=== PATIENT | female | born 2000 | race Caucasian/White ===

== ENCOUNTER 2024-10-21 19:39 | Inpatient (IN) | payer OTHER ==
[~2024-10-21] VITALS: Ht 162.6 cm; Wt 54.1 kg
[2024-10-21 19:51] VITALS: O2SAT 100
[2024-10-21 21:44] LABS: HEMATOCRIT. 46.2 % (36.0-48.0); HEMOGLOBIN. 15.6 g/dL (12.0-16.0); MEAN CORPUSCULAR HEMOGLOBIN 30.5 pg (28.0-32.0); MEAN CORPUSCULAR HGB CONC 33.8 g/dL (31.0-37.0); MEAN CORPUSCULAR VOLUME 90.2 fL (81.0-99.0); MEAN PLATELET VOLUME 7.3 fl (7.4-10.4); PLATELET 194 x1000/uL (130-400); RED BLOOD CELL COUNT 5.12 mill/uL (4.2-5.4); RED CELL DISTRIBUTION WIDTH 12.6 % (11.6-14.6); WHITE BLOOD COUNT 14.2 x1000/uL (4.5-11.0)
[2024-10-21 21:49] LABS: DIFFERENTIAL COMMENT 1
[2024-10-21 21:50] LABS: CHLORIDE 119 mEq/L (98-107); SODIUM 148 mEq/L (136-145)
[2024-10-21 21:51] LABS: CARBON DIOXIDE 17 mEq/L (21-32)
[2024-10-21 21:52] LABS: HCG SCREEN NEGATIVE
[2024-10-21 21:56] LABS: CREATININE 0.4 mg/dL (0.6-1.0); GLUCOSE 99 mg/dL (70-105); UREA NITROGEN BLOOD 11 mg/dL (9-23)
[2024-10-21 21:58] LABS: ALANINE AMINOTRANSFERASE 9 IU/L (10-49); ALBUMIN 2.6 g/dL (3.2-4.8); ASPARTATE AMINOTRANSFERASE 16 IU/L (<34); BILIRUBIN DIRECT 0.2 mg/dL (<=3.0); BILIRUBIN TOTAL 0.7 mg/dL (0.1-1.0); PROTEIN TOTAL 4.7 g/dL (6.0-8.3)
[2024-10-21 22:03] LABS: PLATELET ESTIMATE NORMAL
[2024-10-21 22:04] LABS: CALCIUM 5.9 mg/dL (8.7-10.4); LACTIC ACID 3.7 mmol/L (0.4-2.0); POTASSIUM 2.8 mEq/L (3.5-5.1)
[2024-10-21] MEDS ORDERED: KCL 20MEQ/100ML PREMIX 100 ML IV SCH (22:45)
[2024-10-21] MEDS: SODIUM CHLORIDE 0.9% 1,000 ML IV ONE (23:18)
[2024-10-21] MEDS: ONDANSETRON HCL 4MG/2ML INJ IV NR (23:20)
[2024-10-21] MEDS: MAGNESIUM 2 G PREMIX 50 ML IV NR (23:34)
[2024-10-22] MEDS: POTASSIUM CHLORIDE 40 MEQ in DEXT 5% WATER 230 ML IV NR (01:26)
[2024-10-22] MEDS ORDERED: IPRATROPIUM/ALBUTEROL 0.5-3(2.5)MG/3ML NEB HHN PRN (02:00)
[2024-10-22] MEDS ORDERED: ONDANSETRON HCL 4MG/2ML INJ IV PRN (02:00)
[2024-10-22] MEDS ORDERED: ACETAMINOPHEN 325MG TABLET PO PRN ×2 (02:00)
[2024-10-22] MEDS ORDERED: CLONIDINE 0.1MG TABLET PO PRN (02:00)
[2024-10-22] MEDS: POTASSIUM CHLORIDE 30 MEQ in DEXT 5%/0.9% NACL 985 ML IV SCH (03:30)
[2024-10-22] MEDS ORDERED: POTASSIUM CHLORIDE 30 MEQ in DEXT 5%/0.9% NACL 985 ML IV SCH (04:00)
[2024-10-22 06:07] LABS: PHOSPHORUS 3.2 mg/dL (2.5-4.9)
[2024-10-22 07:55] LABS: CLARITY URINE CLEAR (CLEAR); COLOR URINE YELLOW (YELLOW); GLUCOSE URINE NEGATIVE (NEGATIVE); KETONES URINE NEGATIVE (NEGATIVE); LEUKOCYTE ESTERASE URINE NEGATIVE (NEGATIVE); NITRITE URINE NEGATIVE (NEGATIVE); OCCULT BLOOD URINE NEGATIVE (NEGATIVE); PROTEIN URINE NEGATIVE (NEGATIVE); SPECIFIC GRAVITY URINE 1.027 (1.005-1.030); UROBILINOGEN URINE 0.2 E.U./dL (0.2-1.0)
[2024-10-22 09:09] LABS: CARBON DIOXIDE 26 mEq/L (21-32); CHLORIDE 106 mEq/L (98-107); POTASSIUM 3.9 mEq/L (3.5-5.1); SODIUM 141 mEq/L (136-145)
[2024-10-22 09:10] LABS: BASOPHILS % 0.3 % (0.0-2.0); CALCIUM 8.3 mg/dL (8.7-10.4); EOSINOPHILS % 0.1 % (0.0-5.0); HEMATOCRIT. 38.9 % (36.0-48.0); HEMOGLOBIN. 13.2 g/dL (12.0-16.0); LYMPHOCYTES % 8.1 % (20.0-50.0); MEAN CORPUSCULAR HEMOGLOBIN 30.6 pg (28.0-32.0); MEAN CORPUSCULAR HGB CONC 33.9 g/dL (31.0-37.0); MEAN CORPUSCULAR VOLUME 90.5 fL (81.0-99.0); MEAN PLATELET VOLUME 7.2 fl (7.4-10.4); MONOCYTES % 9.2 % (2.0-8.0); NEUTROPHILS % 82.3 % (40.0-76.0); PLATELET 168 x1000/uL (130-400); RED CELL DISTRIBUTION WIDTH 12.7 % (11.6-14.6); WHITE BLOOD COUNT 9.4 x1000/uL (4.5-11.0)
[2024-10-22 09:14] LABS: CREATININE 0.7 mg/dL (0.6-1.0); GLUCOSE 94 mg/dL (70-105)
[2024-10-22 09:15] LABS: UREA NITROGEN BLOOD 14 mg/dL (9-23)
[2024-10-22 09:17] LABS: PHOSPHORUS 2.3 mg/dL (2.5-4.9)
[2024-10-22] MEDS: CALCIUM CARBONATE/VITAMIN D3 500MG TABLET PO SCH (09:32)
[2024-10-22] MEDS: SODIUM PHOSPHATE 10 MMOL in DEXT 5% WATER 246.6667 ML IV NR (12:00)
[2024-10-22 15:47] VITALS: BP 100/67; PULSE 85; RESP 16; TEMP 36.7
[2024-10-22 16:00] VITALS: BP 100/67; PULSE 85; RESP 16; TEMP 36.7; O2SAT 98
== END 2024-10-22 20:31 | disposition home or self-care (01) | DRG 371 ==
LOC: ER 19:39 → 8EST 10-22 01:01 → EDBEDREQSVC 10-22 11:26
PROVIDERS: ADMIT Hospitalist; ATTEND Hospitalist
DX: A05.8 Other specified bacterial foodborne intoxications (principal); E43 Unspecified severe protein-calorie malnutrition; K65.9 Peritonitis, unspecified; E87.20 Acidosis, unspecified; R65.10 Systemic inflammatory response syndrome (SIRS) of non-infectious origin without acute organ dysfunction; Z68.1 Body mass index [BMI] 19.9 or less, adult; E83.39 Other disorders of phosphorus metabolism; K52.9 Noninfective gastroenteritis and colitis, unspecified; E83.51 Hypocalcemia; E86.0 Dehydration; F17.200 Nicotine dependence, unspecified, uncomplicated; J45.909 Unspecified asthma, uncomplicated; E87.6 Hypokalemia; Z68.20 Body mass index [BMI] 20.0-20.9, adult; Z87.09 Personal history of other diseases of the respiratory system
CPT/HCPCS: 36415; 80048; 80076; 81003; 82330; 82340; 83605; 83735; 83970; 84100; 84145; 84703; 85025; 87015; 87045; 87427; 87449; 87493; 93005; 99291; J2405; J3475; J3480; J3490; J7042; J7060